=== PATIENT | female | born 1990 | race Caucasian/White ===

== ENCOUNTER 2016-10-18 09:30 | Emergency (ER) | payer OTHER ==
[~2016-10-18] VITALS: Ht 149.9 cm; Wt 51.5 kg
[~2016-10-18 09:30] MED LIST: ETON68IM3 SQ; [UNRECOGNIZED DRUG - REMARK] PO
[2016-10-18 13:13] VITALS: BP 130/66
== END 2016-10-18 13:33 | disposition home or self-care (01) ==
LOC: EMS 09:32
DX: M72.2 Plantar fascial fibromatosis (principal); M79.671 Pain in right foot; G89.29 Other chronic pain
CPT/HCPCS: 99284

== ENCOUNTER 2018-04-02 11:35 | Emergency (ER) | payer OTHER ==
[~2018-04-02] VITALS: Ht 152.4 cm; Wt 59.1 kg
[2018-04-02] MEDS ORDERED: KETOROLAC TROMETHAMINE 60 MG/2 ML VIAL IM ONE (14:15)
[2018-04-02 16:15] VITALS: BP 126/78
== END 2018-04-02 16:15 | disposition home or self-care (01) ==
LOC: EMS 11:36
DX: S93.401A Sprain of unspecified ligament of right ankle, initial encounter (principal); I10 Essential (primary) hypertension; Z79.899 Other long term (current) drug therapy; X50.9XXA Other and unspecified overexertion or strenuous movements or postures, initial encounter; Y93.55 Activity, bike riding; Y92.488 Other paved roadways as the place of occurrence of the external cause; Y99.8 Other external cause status
CPT/HCPCS: 73610; 73630; 96372; 99284; J1885; 29515